=== PATIENT | female | born 1935 | race Caucasian/White ===

== ENCOUNTER → 2016-10-24 | Outpatient (CLI) | payer OTHER | LOC: MMPC 11:11 | PROVIDERS: ATTEND Physician Assistant | DX: H57.8 Other specified disorders of eye and adnexa (principal) | CPT/HCPCS: 99202; G0463 ==

== ENCOUNTER 2017-01-03 10:57 | Emergency (ER) | payer OTHER ==
[2017-01-03 11:24] VITALS: RESP 18; TEMP 98.5
[2017-01-03] MEDS ORDERED: DEXAMETHASONE PF 10 MG/1 ML VIAL IV ONE (11:38)
[2017-01-03] MEDS ORDERED: diphenhydrAMINE 50 MG/1 ML VIAL IVP ONE (11:38)
[2017-01-03] MEDS ORDERED: Prochlorperazine Edisylate Inj 10mg/2ml vial IVP ONE (11:38)
[2017-01-03] MEDS ORDERED: Magnesium Sulfate 2gm (Premix) 2 GM in Premix 1 BAG IV ONE (11:38)
[2017-01-03] MEDS ORDERED: Sodium Chloride 0.9% 1,000 ML PRIMARY IV ONE (11:38)
[2017-01-03] MEDS ORDERED: KETOROLAC 15 MG/1 ML VIAL IVP ONE (11:38)
--- NOTE | 2017-01-03 11:45 | PDOC ---
Headache HPI - General Chief Complaint: Headache Stated Complaint: HEADACHE Date Seen by Provider: 01/03/17 Time Seen by Provider: 11:41 Source: POSITIVE: Patient Exam Limitations: POSITIVE: No limitations Nurse's Notes Reviewed & Considered: Yes - History of Present Illness Initial Comments: Patient comes in today with chief complaint of headache. The patient's headache has been ongoing for 3 days, it seems to began in the back of her neck and extends over her head. Her headache began during the period of time she was cleaning a rental house. She was using various cleaning substances. She has a history of right lower lobe lung resection in 2013 for lung cancer with no radiation or chemotherapy treatment. Presently she denies having had any loss of consciousness, no nausea vomiting or diarrhea, no hematuria or dysuria, no fever chills or sweats, no rashes. Body Location Affected: REPORTS: Head Timing: REPORTS: Abrupt Duration: >24 hours Severity: Moderate Quality: REPORTS: "Pain", Stabbing, Throbbing Context: REPORTS: Other (Recent exertion from cleaning a rental property and using various cleaning chemicals.) Associated Symptoms: REPORTS: Other (She denies any associated symptoms.) Any Prior Injuries Related to Current Complaint?: No - Patient Home Medications Home Medications: Home Medications Winston Cit Mal/Cholecalciferol [Calcium Citrate Malate With D] 1 each PO DAILY Metoprolol Succinate 50 mg PO DAILY 01/03/17 Sitagliptin Phosphate [Januvia] 25 mg PO DAILY 01/03/17 - Patient Allergies Allergies/Adverse Reactions: Allergies Allergy/AdvReac Type Severity Reaction Status Date / Time morphine Allergy Severe halucinatio Verified 01/03/17 11:09 ns Penicillins Allergy Severe Throat Verified 01/03/17 11:09 swells Sulfa (Sulfonamide Allergy Severe Rash Verified 01/03/17 11:09 Antibiotics) Past Medical History - heen HEENT History: Denies History Respiratory History: Other (please comment) Additional Respiratory History: 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 Gastrointestinal History: Denies History Genitourinary History: Denies History Endocrine History: Type 2 Diabetes (oral) Musculoskeletal History: Denies History Prosthesis or Implant: No Neurological History: Other (please comment) Additional Neurological History: Some tremor she has not had worked up Blood Disorders: Denies History Psychiatric History: Denies History History of Sexually Transmitted Diseases: No Female Reproductive History: Denies History Obstetrical History: Denies History Cancer History: Lung In Past Year Been Physically Harmed or Verbally Threatened: No History of MDRO: No History of Other Communicable Diseases: No Tobacco Use: Never Smoker Alcohol Use: Rarely Substance Use Type: None Significant Family History: No pertinent family hx ROS - Limitations ROS Limitations: No Limitations Constitution: REPORTS: Denies Symptoms Cardiovascular: REPORTS: Denies Cardiac Symptoms Respiratory: REPORTS: Denies Resp Symptoms Neurological: REPORTS: Headache Gastrointestinal: REPORTS: Denies GI Symptoms Endocrine: REPORTS: Denies Symptoms Musculoskeletal: REPORTS: Neck Pain Genitourinary: REPORTS: Denies Symptoms Eyes: REPORTS: Denies Symptoms ENT: REPORTS: Denies Symptoms Skin: REPORTS: Denies Skin Symptoms Lympathic: REPORTS: Denies Lympathic Symptoms Immunologic: POSITIVE: Denies Symptoms Psychiatric: POSITIVE: Denies Psych Symptoms Headache Exam - General Appearance General Appearance: POSITIVE: Alert, Cooperative, No Evidence of Trauma, Mild Distress - HEENT Head / Face: POSITIVE: Atraumatic, Normal Inspection, No Facial Swelling Eyes: POSITIVE: Inspection Normal, PERRL, EOM's Intact, Eyelids Uninjured, No Nystagmus, Sclera Normal Ears: POSITIVE: Ears Normal Inspection, Auricle Normal Nose: POSITIVE: Inspection Normal, No Apparent Trauma, Nares Normal, No CSF Leak Oropharynx: POSITIVE: External Inspection Nml, Pharynx Inspect. Nml, Airway Intact, Voice Normal, Moist Mucous Membranes, No Oral Injury, Lips Normal, Gums Normal, No Drooling - Pupil Size Pupil Size: 5 mm: Bilateral - Neck Neck: POSITIVE: Normal Inspection, Supple - Respiratory / CVS Respiratory / CVS: POSITIVE: Chest Non-Tender, No Respiratory Distress, Heart Sounds Normal, Regular Rate/Rhythm, Breath Sounds Normal - Abdomen Abdomen: Soft: (All Quadrants), Normal Bowel Sounds: (All Quadrants), Denies Tenderness: (All Quadrants) - Skin Skin: POSITIVE: Intact, Normal Palpation - Extremities Extremity: Non-Tender: (All Extremities), Normal ROM: (All Extremities), Normal Inspection: (All Extremities) - Neuro / Psych Higher Functions: POSITIVE: Alert, Oriented x3, Normal Speech, Mood Appropriate , Affect Appropriate Cranial Nerves: POSITIVE: Normal As Tested (NIH stroke scale is 0), No Evidence of Acute CVA Cerebellar: POSITIVE: Normal As Tested Sensorimotor: POSITIVE: No Motor Deficits, No Sensory Deficits, Reflexes Normal Reflexes: Patellar (R): 3+, Patellar (L): 3+, Radial (R): 4+, Radial (L): 4+ Headache Progress - Results Reviewed by me Xrays/CTs/US Reviewed by me: Yes Discussed with Radiologist: Yes Lab Results Reviewed: Yes Lab Results:: Laboratory Results 01/03/17 Range/Units 11:11 WBC 7.86 (4.8-10.8) 10^3/uL RBC 4.34 (4.20-5.40) 10^6/uL Hgb 12.7 (12.0-16.0) g/dL Hct 39.0 (37.0-47.0) % MCV 89.9 (81-99) FL MCH 29.3 (27-31) PG MCHC 32.6 L (33-37) g/dL RDW Std Deviation 45.9 (39-50) fL RDW Coeff of Beverly 14.2 (11.5-14.5) % Plt Count 285 (140-350) 10*3/uL MPV 9.1 (7.4-12.2) FL Immature Gran % (Auto) 0.1 (0-5) % Neut % (Auto) 74.1 (50-80) % Lymph % (Auto) 12.8 (10-50) % [place] % (Auto) 10.9 (5-15) % Eos % (Auto) 1.5 (0-8) % Baso % (Auto) 0.6 (0-1) % Immature Gran # (Auto) 0.01 10*3/UL Neut # (Auto) 5.81 10*3/UL Lymph # (Auto) 1.01 10*3/uL [place]oup # (Auto) 0.86 H (0.3-0.8) 10*3/UL Eos # (Auto) 0.12 10*3/UL Baso # (Auto) 0.05 10*3/UL WBC Morphology Comment Normal morphology (NORM) Plt Morphology Comment Normal morphology (NORM) RBC Morph Comment Normal morphology (NORM) Sodium 138 (135-145) meq/L Potassium 4.3 (3.8-5.2) meq/L Chloride 101 (98-112) meq/L Carbon Dioxide 24 (23-33) meq/L Anion Gap 13 (5-20) BUN 38 H (7-22) mg/dL Creatinine 1.5 H (0.50-1.20) mg/dL Estimated GFR [employer] BUN/Creatinine Ratio 25.33 H (6-20) Glucose 199 H (78-110) mg/dL Calculated Osmolality 300.0 H (267-292) mOsm/kg Calcium 10.2 (8.7-10.7) mg/dL Magnesium 2.2 (1.6-2.4) mg/dL Total Bilirubin 0.7 (0.3-1.2) mg/dL AST 28 (8-39) IU/L ALT 19 (9-52) IU/L Alkaline Phosphatase 63 (38-126) IU/L Total Protein 7.6 (6.1-8.0) g/dL Albumin 4.6 (3.5-4.8) g/dL Globulin 3.1 (2.50-4.10) g/dL Albumin/Globulin Ratio 1.40 (1.3-2.0) mg/g TSH 1.95 (0.2700-4.2000) uIU/mL - Patient's Progress Pain Medication Addressed: POSITIVE: Yes Re-Examine Time:: 13:14 Status: POSITIVE: Improved MDM / ED Course: Patient was evaluated, IV started, blood drawn and sent to the lab for studies, CT scan of her head was obtained. Patient received a liter of normal saline, dexamethasone, Benadryl, Toradol, magnesium sulfate, and Compazine. Her headache significantly improved. Laboratory findings: CT scan of her head shows no acute intracranial abnormalities. There are noted to be old infarcts frontal and parietal regions. TSH and magnesium are normal, comprehensive metabolic panel is unremarkable, CBC is unremarkable. Assessment: Headache resolved. Plan: Discharge home. - Consult Counseled: POSITIVE: Patient, Family, RE: Lab Results, RE: Radiology Results, RE : DX, RE: Need for F/U Patient Care Time - Estimated PCT Patient Care Time (In Minutes): 30 Vital Signs - Recent Vital Signs Vital Signs: Vital Signs (Last 8 hours) Temp Pulse Resp BP Pulse Ox 01/03/17 11:13 98.5 F 66 18 157/77 96 - VS Reviewed Vital Signs Reviewed: Yes Discharge Clinical Impression: Headache Discharge Disposition: Discharged to Home Condition: Stable Patient Instructions Given at Discharge: Acute Headache (ED)
[2017-01-03 11:50] LABS: BASOPHILS # (AUTO) 0.05 10*3/UL; BASOPHILS % (AUTO) 0.6 % (0-1); EOSINOPHILS # (AUTO) 0.12 10*3/UL; EOSINOPHILS % (AUTO) 1.5 % (0-8); HEMOGLOBIN 12.7 g/dL (12.0-16.0); LYMPHOCYTES # (AUTO) 1.01 10*3/uL; MEAN CORPUSCULAR HEMOGLOBIN 29.3 PG (27-31); MEAN CORPUSCULAR HGB CONC 32.6 g/dL (33-37); MEAN CORPUSCULAR VOLUME 89.9 FL (81-99); MEAN PLATELET VOLUME 9.1 FL (7.4-12.2); MONOCYTES # (AUTO) 0.86 10*3/UL (0.3-0.8); MONOCYTES % (AUTO) 10.9 % (5-15); NEUTROPHILS # (AUTO) 5.81 10*3/UL; NEUTROPHILS % (AUTO) 74.1 % (50-80); RED BLOOD COUNT 4.34 10^6/uL (4.20-5.40)
[2017-01-03 11:55] LABS: PLATELET MORPHOLOGY COMMENT NORMAL MORPHOLOGY (NORM); RBC MORPHOLOGY COMMENT NORMAL MORPHOLOGY (NORM); WBC MORPHOLOGY COMMENT NORMAL MORPHOLOGY (NORM)
[2017-01-03 11:57] LABS: BLOOD UREA NITROGEN 38 mg/dL (7-22); BUN/CREATININE RATIO 25.33 (6-20); CALCIUM 10.2 mg/dL (8.7-10.7); MAGNESIUM 2.2 mg/dL (1.6-2.4); SERUM ALBUMIN 4.6 g/dL (3.5-4.8)
--- NOTE | 2017-01-03 12:56 | DI ---
HISTORY: Severe headache since early this morning; resolved now. COMPARISON: None available. TECHNIQUE: Contiguous 5 mm images were obtained from the vertex through the skull base without the u se of contrast. 37 images. FINDINGS: Focal right frontal and right parietal periventricular volume loss is present, likely from prior infarction. Senescent volume loss is also evident with mild ex vacuo enlargement of the ventr icles and CSF spaces, not greater than expected for age. There is minimal patchy hypoattenuation of the supratentorial white matter consistent with chronic small vessel ischemic changes. Glover-white di fferentiation is maintained. No dense vessel sign, obscuration of the basal ganglia, loss of insular ribbon or other evidence of a cute vascular territorial infarction. There is no evidence of acute intracranial hemorrhage, herniat ion or hydrocephalus. Atherosclerotic vascular disease of the anterior and posterior circulation noted. No evidence of calvarial fracture. Visualized portions of the skull base and craniocervical junction appear normal. Paranasal sinuses are clear. Normal appearance of the orbits and intraorbital surinder nts. IMPRESSION: 1. No evidence of acute intracranial abnormality. 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 NOTIFICATION: The above report was phoned to Sandrita Tyson in the ER Department on 01/03/2017 at 03:05 PM EST.
== END 2017-01-03 13:25 | disposition home or self-care (01) ==
LOC: ER 10:57
DX: R51 Headache (principal); E11.9 Type 2 diabetes mellitus without complications; Z85.118 Personal history of other malignant neoplasm of bronchus and lung
CPT/HCPCS: 70450; 80053; 83735; 84443; 85025; 96365; 96375; 99283 ×2; J1200; J0780; J1100; J1885; J3475; J7030

== ENCOUNTER 2017-04-13 16:50 | Emergency (ER) | payer OTHER ==
[2017-04-13] MEDS ORDERED: ONDANSETRON 4 MG/2 ML VIAL IVP ONE (16:58)
[2017-04-13] MEDS ORDERED: NORMAL SALINE 10 ML SYRINGE FLUSH IVP PRN (16:58)
[2017-04-13] MEDS ORDERED: Sodium Chloride 0.9% 1,000 ML PRIMARY IV ONE ×2 (16:59→18:29)
[2017-04-13] MEDS ORDERED: Sodium Chloride 0.9% 0 ML IV ONE (17:06)
[2017-04-13] MEDS ORDERED: ONDANSETRON 4 MG/2 ML VIAL ONE (17:06)
[2017-04-13] MEDS ORDERED: Sodium Chloride 0.9% 1,000 ML ONE (17:07)
--- NOTE | 2017-04-13 17:26 | PDOC ---
Nausea/Vomiting/Diarrhea HPI - General Chief Complaint: Nausea / Vomiting / Diarrhea Stated Complaint: NAUSEA/VOMITTING Date Seen by Provider: 04/13/17 Time Seen by Provider: 17:26 - History of Present Illness Initial Comments: Patient is a very nice 81-year-old woman who presents to the emergency department with complaints of nausea and vomiting that started around 5 hours ago. She did have exposure to a gentleman that had some GI illness yesterday. She also had a tick that was on her yesterday she is concerned that this may have something to do with her nausea and vomiting. She denies any other symptoms such as chest pain or neurologic symptoms or any other substantial symptoms other than her nausea vomiting. She does have history of lung cancer that was resected around 3 years ago she had a PET scan after that the did show some possible areas of positive signal in her abdomen and was recommended to get a colonoscopy. She is elected not to do so given her age at this point. - Patient Home Medications Home Medications: Home Medications Winston Cit Mal/Cholecalciferol [Calcium Citrate Malate With D] 1 each PO DAILY Metoprolol Succinate 50 mg PO DAILY 01/03/17 Amlodipine Bes/Olmesartan Med [Kimo 5-20 mg Tablet] 1 each PO DAILY 04/13/17 Aspirin [Aspir 81] 81 mg PO BEDTIME 04/13/17 Atorvastatin Calcium 10 mg PO BEDTIME 04/13/17 Cholecalciferol [Vitamin D3] 1,000 unit PO DAILY 04/13/17 Glipizide 5 mg PO BID 04/13/17 Sitagliptin Phosphate [Januvia] 50 mg PO DAILY 04/13/17 - Patient Allergies Allergies/Adverse Reactions: Allergies Allergy/AdvReac Type Severity Reaction Status Date / Time morphine Allergy Severe halucinatio Verified 04/13/17 16:55 ns Penicillins Allergy Severe Throat Verified 04/13/17 16:55 swells Sulfa (Sulfonamide Allergy Severe Rash Verified 04/13/17 16:55 Antibiotics) Past Medical History - neymaren HEOPAL History: Denies History Respiratory History: Other (please comment) Additional Respiratory History: 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 Gastrointestinal History: Denies History Genitourinary History: Denies History Endocrine History: Type 2 Diabetes (oral) Musculoskeletal History: Denies History Prosthesis or Implant: No Neurological History: Other (please comment) Additional Neurological History: Some tremor she has not had worked up Blood Disorders: Denies History Psychiatric History: Denies History History of Sexually Transmitted Diseases: No Cancer History: Lung History of MDRO: No History of Other Communicable Diseases: No Alcohol Use: Rarely Substance Use Type: None Significant Family History: No pertinent family hx Past Medical History Reviewed: Reviewed - No Changes ROS - Limitations ROS Limitations: No Limitations Constitution: REPORTS: Denies Symptoms Cardiovascular: REPORTS: Denies Cardiac Symptoms Respiratory: REPORTS: Denies Resp Symptoms Nausea/Vomiting/Diarrhea Exam - General Appearance General Appearance: POSITIVE: Alert, Cooperative - HEENT HEENT: POSITIVE: Head Inspection Nml - Neck Neck: POSITIVE: Supple, Normal Inspection - Respiratory Respiratory: POSITIVE: No Respiratory Distress, Breath Sounds Normal - Cardiovascular Cardiovascular: POSITIVE: Regular Rate and Rhythm, Heart Sounds Normal - Chest Chest: POSITIVE: Non Tender - Abdomen Abdomen: Soft: (All Quadrants), Normal Bowel Sounds: (All Quadrants), Denies Tenderness: (All Quadrants) N/V/D Progress - Results Reviewed by me Xrays/CTs/US Reviewed by me: Yes Radiology Findings: multiple findings in abdomen, report reviewed Lab Results Reviewed: Yes Lab Results:: Laboratory Results 04/13/17 04/13/17 04/13/17 Range/Units 17:16 17:17 17:40 WBC 15.49 H (4.8-10.8) 10^3/uL RBC 4.16 L (4.20-5.40) 10^6/uL Hgb 12.2 (12.0-16.0) g/dL Hct 37.4 (37.0-47.0) % MCV 89.9 (81-99) FL MCH 29.3 (27-31) PG MCHC 32.6 L (33-37) g/dL RDW Std Deviation 45.1 (39-50) fL RDW Coeff of Beverly 14.2 (11.5-14.5) % Plt Count 286 (140-350) 10*3/uL MPV 8.8 (7.4-12.2) FL Immature Gran % (Auto) 0.3 (0-5) % Neut % (Auto) 85.8 H (50-80) % Lymph % (Auto) 4.5 L (10-50) % [place] % (Auto) 8.7 (5-15) % Eos % (Auto) 0.5 (0-8) % Baso % (Auto) 0.2 (0-1) % Immature Gran # (Auto) 0.04 10*3/UL Neut # (Auto) 13.30 10*3/UL Lymph # (Auto) 0.69 10*3/uL [place] # (Auto) 1.35 H (0.3-0.8) 10*3/UL Eos # (Auto) 0.08 10*3/UL Baso # (Auto) 0.03 10*3/UL WBC Morphology Comment Normal morphology (NORM) Plt Morphology Comment Normal morphology (NORM) RBC Morph Comment Normal morphology (NORM) Sodium 141 (135-145) meq/L Potassium 4.0 (3.8-5.2) meq/L Chloride 106 (98-112) meq/L Carbon Dioxide 23 (23-33) meq/L Anion Gap 12 (5-20) BUN 35 H (7-22) mg/dL Creatinine 1.5 H (0.50-1.20) mg/dL Estimated GFR Clinical Trial Specialist BUN/Creatinine Ratio 23.33 H (6-20) Glucose 201 H (78-110) mg/dL Calculated Osmolality 305.0 H (267-292) mOsm/kg Calcium 9.6 (8.7-10.7) mg/dL Total Bilirubin 0.5 (0.3-1.2) mg/dL AST 30 (8-39) IU/L ALT 35 (9-52) IU/L Alkaline Phosphatase 52 (38-126) IU/L Total Protein 7.2 (6.1-8.0) g/dL Albumin 4.4 (3.5-4.8) g/dL Globulin 2.8 (2.50-4.10) g/dL Albumin/Globulin Ratio 1.50 (1.3-2.0) mg/g Amylase 47 (30-110) U/L Lipase 55 (23-300) IU/L Ur Collection Type Clean catch urine Urine Color Yellow Urine Clarity Clear (CLEAR) Urine pH 5.5 (5.0-8.5) Ur Specific [place] 1.020 (1.005-1.030) Urine Protein 100 (NEG) mg/dl Urine Glucose (UA) 100 (NEG) mg/dL Urine Ketones Negative (NEG) Urine Occult Blood Negative (NEG) Urine Nitrate Negative (NEG) Urine Bilirubin Negative (NEG) Urine Urobilinogen 0.2 (0.2) EU/dL Ur Leukocyte Esterase Negative (NEG) Urine RBC 0 (NONE) /hpf Urine WBC 0 (NONE) Ur Squamous Epith Cells Rare (NONE) Ur Renal Epithelial Cell None (NONE) Urine Crystals None Urine Bacteria Rare (NONE) Urine Casts None (NONE) Urine Mucus None (NONE) Urine Trichomonas None (NONE) Urine Yeast None (NONE) Ur Culture Indicated? Culture not set - Patient's Progress MDM / ED Course: This patient had multiple labs drawn and ended up having an elevated white blood cell count around 15. Her symptoms did not readily go away early in the course of her evaluation this coupled with the fact that her white count was significantly elevated prompted CT scan of her abdomen without contrast secondary to her chronic renal disease. CT scan of her abdomen was performed since she does have history of chest malignancy also apparently some abnormal signal on a PET scan in her abdomen and acute abdominal symptoms. CT scan does not show anything that I believe would be acute in nature however. Patient is also feeling much better as well. We did ambulate around the emergency department we ambulated her without oxygen she saturated well she was able to tolerate a light fluid challenge without vomiting and feel that she has improved well enough that she can go home. I have encouraged her to follow-up with her primary care provider and to consider seeing a general surgeon in regards to the findings in her abdomen. She knows to return here quickly if she starts to have worsening symptoms at all. Patient Care Time - Estimated PCT Patient Care Time (In Minutes): 45 Vital Signs - Recent Vital Signs Vital Signs: Vital Signs (Last 8 hours) Temp Pulse Resp BP Pulse Ox 04/13/17 16:55 96.9 F 75 18 150/77 94 - VS Reviewed Vital Signs Reviewed: Yes Discharge Clinical Impression: Gastroenteritis, Abdominal pain Discharge Disposition: Discharged to Home Condition: Fair Patient Instructions Given at Discharge: Dehydration (ED), Gastroenteritis (ED) , Acute Nausea and Vomiting (ED), Acute Abdominal Pain (ED) Additional Instructions: Monitor symptoms closely, return if needed for worsening abdominal pain or worsening symptoms. Follow-up with her primary care provider to go over your most recent CT scan and to consider general surgical consultation if necessary. Try clear liquids only tonight try advancing her diet tomorrow if you are feeling better.
[2017-04-13 17:27] LABS: BLOOD UREA NITROGEN 35 mg/dL (7-22); BUN/CREATININE RATIO 23.33 (6-20); CALCIUM 9.6 mg/dL (8.7-10.7); SERUM ALBUMIN 4.4 g/dL (3.5-4.8)
[2017-04-13 17:34] LABS: BASOPHILS # (AUTO) 0.03 10*3/UL; BASOPHILS % (AUTO) 0.2 % (0-1); EOSINOPHILS # (AUTO) 0.08 10*3/UL; EOSINOPHILS % (AUTO) 0.5 % (0-8); HEMATOCRIT 37.4 % (37.0-47.0); HEMOGLOBIN 12.2 g/dL (12.0-16.0); LYMPHOCYTES # (AUTO) 0.69 10*3/uL; MEAN CORPUSCULAR HEMOGLOBIN 29.3 PG (27-31); MEAN CORPUSCULAR HGB CONC 32.6 g/dL (33-37); MEAN CORPUSCULAR VOLUME 89.9 FL (81-99); MEAN PLATELET VOLUME 8.8 FL (7.4-12.2); MONOCYTES # (AUTO) 1.35 10*3/UL (0.3-0.8); MONOCYTES % (AUTO) 8.7 % (5-15); NEUTROPHILS % (AUTO) 85.8 % (50-80); RED BLOOD COUNT 4.16 10^6/uL (4.20-5.40)
[2017-04-13 17:39] LABS: PLATELET MORPHOLOGY COMMENT NORMAL MORPHOLOGY (NORM); RBC MORPHOLOGY COMMENT NORMAL MORPHOLOGY (NORM); WBC MORPHOLOGY COMMENT NORMAL MORPHOLOGY (NORM)
[2017-04-13 17:40] VITALS: RESP 18; TEMP 96.9
[2017-04-13 18:01] LABS: BILIRUBIN,URINE NEGATIVE (NEG); CLARITY,URINE CLEAR (CLEAR); COLOR,URINE YELLOW; GLUCOSE, URINE (UA) 100 mg/dL (NEG); NITRATE,URINE NEGATIVE (NEG); OCCULT BLOOD,URINE NEGATIVE (NEG); PH,URINE 5.5 (5.0-8.5); PROTEIN,URINE 100 mg/dl (NEG); UROBILINOGEN,URINE 0.2 EU/dL (0.2)
[2017-04-13 18:06] LABS: BACTERIA,URINE RARE; RBC,URINE 0 /hpf; SQUAMOUS EPITHELIAL CELL,UR RARE; URINE SAMPLE TYPE CLEAN CATCH URINE; WBC,URINE 0
[2017-04-13] MEDS ORDERED: fentaNYL Inj 100 MCG/2 ML VIAL IVP ONE (18:28)
--- NOTE | 2017-04-13 20:33 | DI ---
HISTORY: Nausea and vomiting. Leukocytosis. COMPARISON: None available. TECHNIQUE: Unenhanced images of the abdomen and pelvis were obtained and submitted for interpretatio n. FINDINGS: There is a right pleural effusion with linear calcification along the right pleural surfac e versus prior surgery. There is a hiatal hernia. There is cardiomegaly. There are bibasilar opaci ties suggestive of atelectasis. There is diffuse emphysematous change. The liver returns a heterogeneous attenuation. There is mild irregularity at the liver dome, which c ould be due to prior surgery. Please correlate. The spleen is grossly unremarkable. The pancreas i s atrophied. The gallbladder is distended. Recommend correlation with ultrasound. The stomach is collapsed. There is a relatively well-encapsulated fluid collection anterior to the s tomach measuring approximately a 0.3 cm. This could represent an abscess, foregut duplication cyst o r cystic lymph node. A duodenal diverticulum, or pancreatic pseudocyst is in the differential. The aorta and IVC demonstrate no acute findings. There is ectasia at the thoracoabdominal aorta. Th ere is diffuse atherosclerotic calcification of the aorta. Both kidneys maintain normal renal contour. There is no focal adrenal mass. There is moderate to severe constipation with diffuse scattered colonic diverticulosis. There is seg mental thickening of the sigmoid colon which could benefit from colonoscopy. There is no obstruction. The small bowel loops are not dilated. There is no free air or free fluid. The appendix is not clearly identified. The urinary bladder is distended. The uterus is not clearly identified. Ultrasound correlation is r ecommended. There is grade 2 anterolisthesis of L5 on S1. There are bilateral pars defects. There is diffuse ad vanced degenerative change with vacuum phenomenon and endplate sclerosis. IMPRESSION: 1. Right pleural effusion with linear calcification along the right pleural surface versus prior surg maximo. 2. Hiatal hernia. 3. Cardiomegaly. 4. Bibasilar atelectasis as well as diffuse emphysematous change. 5. Relatively well-encapsulated fluid collection anterior to the stomach could represent an abscess, foregut duplication cyst or cystic lymph node. A duodenal diverticulum, or pancreatic pseudocyst is in the differential. 6. 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 7. Diffuse scattered colonic diverticulosis. 8. Grade 2 anterolisthesis of L5 on S1 with bilateral parts defects as well as diffuse advanced degen erative change and vacuum phenomenon and endplate sclerosis. NOTIFICATION: The above findings were phoned to Krysten Zavala in the ER Department on 04/13/2017 at 9:5 4pm EST.
== END 2017-04-13 20:37 | disposition home or self-care (01) ==
LOC: ER 16:50
DX: K52.9 Noninfective gastroenteritis and colitis, unspecified (principal); E11.9 Type 2 diabetes mellitus without complications; R10.84 Generalized abdominal pain; R11.2 Nausea with vomiting, unspecified; Z90.2 Acquired absence of lung [part of]
CPT/HCPCS: 74150; 80053; 81001; 81003; 82150; 82948; 83690; 85025; 96361; 96374; 96375; 99283; 99284; J3010; J2405; J7030; J7050